=== PATIENT | female | born 2000 | race American Indian/Alaskan Native ===

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

== ENCOUNTER 2020-05-25 16:39 | Emergency (ER) | payer OTHER ==
[2020-05-25 16:49] VITALS: BP 137/81
[2020-05-25] MEDS ORDERED: IBUPROFEN 600 MG TAB PO ONE (17:42)
--- NOTE | 2020-05-25 17:45 | Emergency Department Report ---
ED General Adult HPI - General Chief complaint: Eye Problems Stated complaint: EYE PAIN Time Seen by Provider: 05/25/20 17:42 Source: patient Mode of arrival: Ambulatory Limitations: No Limitations - History of Present Illness Initial comments: 19-year-old -Citizen Of [place] female patient presents with complaints of left redness and pain x3 days. Patient states her symptoms began after some discussion her eyes she began to rub it vigorously. She denies any foreign body sensation, photophobia, fever/chills/sweats, or pain with eye movements. Casey good rates her current pain is 8/10 in severity and states it worsens to touch. She denies being a contact lens wear or vision changes - Related Data Previous Rx's Medication Instructions Recorded Last Taken Type Sulfamethoxazole/Trimethoprim 1 each PO BID #20 tablet 02/19/15 Unknown Rx [Bactrim DS TAB] Amoxicillin [Amoxicillin TAB] 875 mg PO BID #20 tablet 05/25/15 Unknown Rx Doxycycline Hyclate [Doxycycline 100 mg PO BID 14 Days #28 tab 03/16/19 Unknown Rx Hyclate TAB] metroNIDAZOLE [Flagyl] 500 mg PO BID 7 Days #14 tab 03/16/19 Unknown Rx Amoxicillin/Potassium Clav 1 each PO BID #21 tablet 07/07/19 Unknown Rx [Augmentin 875-125 Tablet] Ibuprofen [Motrin 600 MG tab] 600 mg PO Q8H PRN #20 tablet 07/07/19 Unknown Rx Erythromycin [Erythromycin Ophth 1 cm OU Q3H 7 Days #1 tube 05/25/20 Unknown Rx Oint] Ibuprofen [Motrin 800 MG tab] 800 mg PO Q8HR PRN #15 tablet 05/25/20 Unknown Rx Allergies Allergy/AdvReac Type Severity Reaction Status Date / Time Penicillins Allergy Itching Verified 05/25/20 16:45 ED Review of Systems ROS: Stated complaint: EYE PAIN Other details as noted in HPI Constitutional: denies: chills, fever, malaise Eyes: eye pain, eye discharge. denies: vision change ENT: denies: ear pain, throat pain, congestion Respiratory: denies: cough, shortness of breath Gastrointestinal: denies: vomiting Neurological: denies: headache, numbness Hematological/Lymphatic: denies: swollen glands ED Past Medical Hx - Past Medical History Previous Medical History?: No Hx Diabetes: Yes Additional medical history: Obesity, Sleep apnea - Surgical History Past Surgical History?: No - Social History Smoking Status: Never Smoker Substance Use Type: None - Medications Home Medications: Home Medications Medication Instructions Recorded Confirmed Last Taken Type Sulfamethoxazole/Trimethoprim 1 each PO BID #20 tablet 02/19/15 Unknown Rx [Bactrim DS TAB] Amoxicillin [Amoxicillin TAB] 875 mg PO BID #20 tablet 05/25/15 Unknown Rx Doxycycline Hyclate [Doxycycline 100 mg PO BID 14 Days #28 tab 03/16/19 Unknown Rx Hyclate TAB] metroNIDAZOLE [Flagyl] 500 mg PO BID 7 Days #14 tab 03/16/19 Unknown Rx Amoxicillin/Potassium Clav 1 each PO BID #21 tablet 07/07/19 Unknown Rx [Augmentin 875-125 Tablet] Ibuprofen [Motrin 600 MG tab] 600 mg PO Q8H PRN #20 tablet 07/07/19 Unknown Rx Erythromycin [Erythromycin Ophth 1 cm OU Q3H 7 Days #1 tube 05/25/20 Unknown Rx Oint] Ibuprofen [Motrin 800 MG tab] 800 mg PO Q8HR PRN #15 tablet 05/25/20 Unknown Rx ED Physical Exam - General Limitations: No Limitations General appearance: alert, in no apparent distress - Head Head exam: Present: atraumatic, normocephalic - Eye Eye exam: Present: PERRL, EOMI, conjunctival injection (Left with tenderness to palpation; no obvious foreign bodies noted; no pain with EOMs), periorbital tenderness. Absent: periorbital swelling - Neck Neck exam: Present: normal inspection - Respiratory Respiratory exam: Absent: respiratory distress - Cardiovascular Cardiovascular Exam: Present: regular rate - Neurological Exam Neurological exam: Present: alert, oriented X3, normal gait - Psychiatric Psychiatric exam: Present: normal affect, normal mood - Skin Skin exam: Present: warm, dry, intact, normal color. Absent: rash, cyanosis, diaphoretic, pallor ED Course Vital Signs 05/25/20 05/25/20 16:48 17:59 Temperature 99.1 F Pulse Rate 92 H Respiratory 18 18 Rate Blood Pressure 137/81 O2 Sat by Pulse 98 Oximetry ED Medical Decision Making - Medical Decision Making 19-year-old -Citizen Of [place] female patient presents with complaints of left redness and pain x3 days. Patient states her symptoms began after some discussion her eyes she began to rub it vigorously. She denies any foreign body sensation, photophobia, fever/chills/sweats, or pain with eye movements. Patient rates her current pain is 8/10 in severity and states it worsens to touch. She denies being a contact lens wear or vision changes Will treat for left eye conjunctivitis with erythromycin. Ibuprofen given for pain. Recommend follow-up with primary care provider in 3 days. Discussed signs and symptoms that should prompt immediate return to the emergency department in detail with patient who verbalized understanding. Critical care attestation.: If time is entered above; I have spent that time in minutes in the direct care of this critically ill patient, excluding procedure time. ED Disposition Clinical Impression: Acute bacterial conjunctivitis of left eye Disposition: DC-01 TO HOME OR SELFCARE Is pt being admited?: No Condition: Stable Instructions: Bacterial Conjunctivitis, Adult, [id number] Prescriptions: Erythromycin [Erythromycin Ophth Oint] 1 cm OU Q3H 7 Days #1 tube Ibuprofen [Motrin 800 MG tab] 800 mg PO Q8HR PRN #15 tablet PRN Reason: pain Referrals: [facility] [Provider Group] - 2-3 Days
== END 2020-05-25 18:00 | disposition home or self-care (01) ==
LOC: ED 16:39
DX: H10.89 Other conjunctivitis (principal); B96.89 Other specified bacterial agents as the cause of diseases classified elsewhere; E11.9 Type 2 diabetes mellitus without complications; E66.9 Obesity, unspecified; Z79.899 Other long term (current) drug therapy; Z88.0 Allergy status to penicillin
CPT/HCPCS: 99282